=== PATIENT | male | born 1955 | race Caucasian/White ===

== ENCOUNTER → 2017-02-25 | Outpatient (CLI) | payer OTHER ==
--- NOTE | 2017-03-10 23:13 | ONC ---
[address] [address] RADIATION ONCOLOGY NOTE Name: GERALDINE CHAVEZ Room: [facility]#: [id number] Admission: 02/25/17 Attend Phys: Spencer Gallegos MD Discharge: Date of : 57 Report #: [id number] THIS REPORT FOR: //name// CC: Spencer Blood MD DATE OF SERVICE: 02/25/2017 RADIATION ONCOLOGY FOLLOWUP NOTE REFERRING PHYSICIANS: Include Daniel Prater MD that is his primary care physician; Bernardo Small MD; Lor Blood MD. [facility] phone is [phone]. 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 INTERVAL NOTE: Overall, he is eating well. He has developed a firm area and pain in the left gingival/mandibular area. He felt that it occurred at the time when he was hit by a tree limb, which struck his hand, which then struck his mandible. He was taking gabapentin, but that is not really helping with the pain. He did have some 5 mg hydrocodone left over, which helped relieve the pain. The patient was not compliant with follow up appointments. He stopped returning for follow up appointments in mid 2016. MEDICATIONS: Flomax, trazodone, and gabapentin. SOCIAL HISTORY: Cigarettes: The patient does not smoke. REVIEW OF SYSTEMS: RESPIRATORY: Breathing was stable. He is not short of breath. MUSCULOSKELETAL: He has good range of motion in his upper extremities. PHYSICAL EXAMINATION: VITAL SIGNS: The patient weighed 242.6 pounds on 02/25/2017. He was 219.8 pounds on 04/09/2016. On 02/25/2017, blood pressure was 154/88, pulse 70, respirations 22. LYMPH NODES: He had no palpable cervical or supraclavicular lymphadenopathy. HEAD, EYES, EARS, NOSE AND THROAT: Mouth had no suspicious visible lesions or suspicious palpable lesions. He does have some trismus. He had some tenderness over the left mandible. [place] [address] RADIATION ONCOLOGY NOTE Name: GERALDINE CHAVEZ Room: [facility]#: [id number] Admission: 02/25/17 Attend Phys: Spencer Gallegos MD Discharge: Date of : 57 Report #: [id number] area that measured about 5 cm x 4 cm in the left submandibular area and he has some erythema and tenderness in that area. There were no suspicious visible lesions in the oral cavity or oropharynx. HEART: Had a regular rate and rhythm without murmur. LUNGS: were clear to auscultation. ASSESSMENT AND PLAN: 1. History of left lower gingival cancer- The patient probably has either recurrent cancer in that area versus a cellulitis versus some other etiology. He was started on Bactrim for possible cellulitis and referred for lab work and a PET/CT and then he was asked to schedule a followup appointment with me afterwards. 2. Pain control- He is given a prescription for hydrocodone for pain control. 3. Urinary hesitancy- He takes Flomax for urinary hesitancy. 4. Dental care- The patient was using fluoride trays in the past for dental care. Thank you for allowing me to participate in the care of this patient. <ELECTRONICALLY SIGNED> By: Spencer Gallegos MD 03/10/17 2313 [id number] Gallegos MD /nt
== END ==
LOC: M.RTH 09:37
DX: Z08 Encounter for follow-up examination after completed treatment for malignant neoplasm (principal); Z85.818 Personal history of malignant neoplasm of other sites of lip, oral cavity, and pharynx; R39.11 Hesitancy of micturition

== ENCOUNTER → 2017-03-11 | Outpatient (CLI) | payer OTHER ==
--- NOTE | 2017-03-14 15:21 | ONC ---
[facility] [address] [place] [address] RADIATION ONCOLOGY NOTE Name: GERALDINE CHAVEZ Room: [facility]#: [id number] Admission: 03/11/17 Attend Phys: Spencer Gallegos MD Discharge: Date of : 57 Report #: [id number] THIS REPORT FOR: //name// CC: Spencer Prater MD DATE OF SERVICE: 03/11/2017 FOLLOWUP NOTE [facility] phone is [phone]. REFERRING PHYSICIANS: Include: 1. Lor Blood M.D. 2. Bernardo Small M.D. 3. Dr. Daniel Prater. 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 He completed radiation treatments on 02/26/2016. Prior to the chemoradiotherapy, the patient underwent resection of the cancer by Dr. Small. INTERVAL NOTE: The patient felt like he was eating well. He is eating a regular diet. He is getting better pain relief taking six to eight 5 mg hydrocodone per day. The patient developed a firm area in the left mandibular area, around the end of December,. The patient was not compliant with his followup appointments and he stopped returning for followup appointments around mid 2016. He may have also, recently, stopped taking his anti-hypertensive medication. MEDICATIONS: Flomax, trazodone and then he takes one to two 5 mg hydrocodone every 4 hours as needed for pain. SOCIAL HISTORY: Cigarettes, the patient does not smoke cigarettes, though he has been chewing tobacco and he indicated that he has continued to chew tobacco. REVIEW OF SYSTEMS: RESPIRATORY: Breathing was stable. He was not short of breath. MUSCULOSKELETAL: He had good range of motion of his upper extremities. PHYSICAL EXAMINATION: VITAL SIGNS: The patient weighed 255.8 pounds on 03/11/2017. He was 242.6 pounds on 02/25/2017. He was 219.8 pounds on 04/09/2016. On 03/11/2017, [place] [address] RADIATION ONCOLOGY NOTE Name: GERALDINE CHAVEZ Room: [facility]#: [id number] Admission: 03/11/17 Attend Phys: Spencer Gallegos MD Discharge: Date of : 57 Report #: [id number] pressure was 161/98, pulse 92 and respirations 18. LYMPH NODES: He had no palpable cervical or supraclavicular lymphadenopathy. HEAD, EYES, EARS, NOSE AND THROAT EXAMINATION: The patient has a firm, tender area over the left mandibular area that measures about 5.5 cm x 5 cm. He has trismus. HEART: Has a regular rate and rhythm, without murmur. LUNGS: were clear to auscultation. LABORATORY DATA: From 03/09/2017, hemoglobin 13.5, platelets 265,000 and white blood cells 8.1. His TSH was 65.261. Free T4 was 0.3. RADIOLOGIC DATA: PET CT scan from 03/09/2017 revealed interval increase in size and uptake in the left oral cavity and gingivobuccal sulcus mass, compatible with recurrent tumor. There was also probable involvement of the adjacent left mandible. He also had development of bilateral cervical lymphadenopathy. ASSESSMENT AND PLAN: 1. Probable head and neck cancer of the left gingival area- He continues to chew tobacco. I spoke with with his student teaching coordinator, Dr. Small, after his PET/CT. He was in agreement with referring the patient to the [facility] . He will be referred to the [facility] surgeons to be evaluated for possible salvage surgery. He was given a requisition for a complete blood count and complete metabolic panel in about 3 weeks. He was asked to schedule a follow up appointment to see me afterwards. 2. Pain control- The patient appears to have reasonable pain control with the hydrocodone. 3. Hypothyroidism- The patient was prescribed 100 mcg of levothyroxine and he had a TSH ordered in about 3 months and he was asked to schedule a followup appointment to see me afterwards. 4. Hypertension- He was told to contact his primary Care Physician with regards to managing his blood pressure. 5. Tobacco use- He was encouraged to quit chewing tobacco. Thank you for allowing me to participate in the care of this patient. <ELECTRONICALLY SIGNED> By: Spencer Gallegos MD 03/14/17 1521 [id number] Gallegos MD /nt
== END ==
LOC: M.RTH 01:25
DX: E03.9 Hypothyroidism, unspecified (principal); I10 Essential (primary) hypertension; F17.228 Nicotine dependence, chewing tobacco, with other nicotine-induced disorders